=== PATIENT | female | born 1950 | race Caucasian/White ===

== ENCOUNTER 2024-12-30 14:36 | Inpatient (IN) | payer MEDICARE ==
[2024-12-30] MEDS ORDERED: Polyethylene Glycol 3350 Powder 17 GM Packet PO PRN (14:48)
[2024-12-30] MEDS ORDERED: Acetaminophen 325 MG Tab PO PRN (14:48)
[2024-12-30] MEDS ORDERED: Ondansetron 4 MG/2 ML SDV IV PRN (14:48)
[2024-12-30] MEDS ORDERED: Sodium Chloride 0.9% 10 ML Syringe FLUSH PRN (14:48)
[2024-12-30] MEDS: Albuterol 0.083% 2.5 MG/3 ML Neb Soln NEB PRN (15:10)
[2024-12-30] MEDS: Furosemide 40 MG/4 ML VIAL IVPUSH ONE (15:11)
[2024-12-30] MEDS: methylPREDNISolone Sodium Succinate 125 MG/2 ML SDV IVPUSH ONE (15:41)
[2024-12-30 15:48] LABS: BASE EXCESS ARTERIAL -9.9 mm/L; BICARBONATE,ARTERIAL 17.7 mmol/L (22.0-26.0); CARBOXYHEMOGLOBIN 1.5 % (0.0-1.6); METHEMOGLOBIN 0.4 %; O2 SATURATION ARTERIAL 88.9 % (95.0-98.0); OXYHEMOGLOBIN 87.2 %; PCO2 ARTERIAL 47.7 mmHg (35.0-42.0); PO2 ARTERIAL 67.4 mmHg (75.0-100.0); TOTAL HEMOGLOBIN 11.4 g/dL (12.0-16.0)
[2024-12-30] MEDS: Propofol 200 MG/20 ML SDV IVPUSH ONE (16:19)
[2024-12-30] MEDS: Succinylcholine 200 MG/10 ML MDV ONE (16:29)
[2024-12-30] MEDS: propofoL 1,000 MG/100 ML 100 ML ONE (16:30)
[2024-12-30] MEDS: propofoL 1,000 MG/100 ML 100 ML IV SCH (16:30)
[2024-12-30] MEDS: Propofol 200 MG/20 ML SDV ONE (16:30)
[2024-12-30] MEDS: Succinylcholine 200 MG/10 ML MDV IV STA (16:35)
[2024-12-30 16:47] LABS: C-REACTIVE PROTEIN 2.68 mg/dL (<0.50)
[2024-12-30 16:50] LABS: TROPONIN I HIGH SENSITIVITY 633.1 pg/mL (<=60.3)
[2024-12-30] MEDS: Heparin Sodium 5,000 UNITS in Sodium Chloride 0.9% 500 ML IV SCH (16:50)
[2024-12-30 17:39] LABS: HEMATOCRIT 31.8 % (34.3-46.0); HEMOGLOBIN 10.5 g/dL (11.2-15.5); MEAN CORPUSCULAR HEMOGLOBIN 29.7 pg (31.6-35.5); MEAN CORPUSCULAR VOLUME 89.8 fL (81.4-99.0); RED BLOOD CELL COUNT 3.54 M/uL (3.77-5.24); WHITE BLOOD CELL COUNT,WBC 23.9 K/uL (3.2-11.0)
[2024-12-30 17:42] LABS: BASE EXCESS ARTERIAL -6.4 mm/L; BICARBONATE,ARTERIAL 18.8 mmol/L (22.0-26.0); CARBOXYHEMOGLOBIN 2.5 % (0.0-1.6); METHEMOGLOBIN 1.2 %; O2 SATURATION ARTERIAL 89.7 % (95.0-98.0); OXYHEMOGLOBIN 86.4 %; PCO2 ARTERIAL 38.9 mmHg (35.0-42.0); TOTAL HEMOGLOBIN 10.7 g/dL (12.0-16.0)
[2024-12-30 18:00] LABS: A/G RATIO 0.7 (1.2-2.2); ALANINE AMINOTRANSFERASE,ALT 29 U/L (12-78); ALBUMIN 2.9 g/dL (3.4-5.0); ALKALINE PHOSPHATASE 121 U/L (46-116); ANION GAP 19.6 mmol/L (5.0-14.0); ASPARTATE AMNIOTRANSFERASE,AST 53 U/L (15-37); BILIRUBIN TOTAL 0.8 mg/dL (0.2-1.0); BLOOD UREA NITROGEN,BUN 18 mg/dL (7-18); CARBON DIOXIDE,CO2 21 mmol/L (21-32); CHLORIDE,CL 96 mmol/L (100-108); CREATININE 1.2 mg/dL (0.6-1.0); EST CRCL DRUG DOSING (CG) 38.78 mL/min; ESTIMATED GFR 47 mL/min (>60); GLUCOSE RANDOM 220 mg/dL (74-106); POTASSIUM,K 3.6 mmol/L (3.6-5.2); PROTEIN TOTAL,TP 7.2 g/dL (6.4-8.2); SODIUM,NA 133 mmol/L (140-148)
[2024-12-30] MEDS: Heparin Sodium/D5W 25,000 UNITS/500 ML BAG IV SCH (18:26)
[2024-12-30] MEDS: cefTRIAXone 1 GM in Sodium Chloride 0.9% 50 ML IV SCH (18:31)
[2024-12-30] MEDS: Doxycycline 100 MG in Sodium Chloride 0.9% 100 ML IV SCH (19:02)
[2024-12-30] MEDS: Enoxaparin 40 MG/0.4 ML Syringe SUBCUT SCH (19:13)
[2024-12-30] MEDS ORDERED: methylPREDNISolone Sodium Succinate 40 MG/1 ML SDV IVPUSH SCH (21:00)
[2024-12-30] MEDS ORDERED: Nystatin Topical Powder 15 GM Bottle TOP SCH (22:00)
[2024-12-31] MEDS ORDERED: predniSONE 20 MG Tab PO SCH (08:00)
== END 2024-12-30 20:44 | DRG 208 ==
LOC: JP.MS 14:36 → JP.ICU 15:21
PROVIDERS: ADMIT Hospitalist; ATTEND Hospitalist
PROC: 4A133R1 Monitoring of Arterial Saturation, Peripheral, Percutaneous Approach (ICD-10-PCS; principal; 2024-12-30)
PROC: 0BH17EZ Insertion of Endotracheal Airway into Trachea, Via Natural or Artificial Opening (ICD-10-PCS; 2024-12-30)
PROC: 5A1935Z Respiratory Ventilation, Less than 24 Consecutive Hours (ICD-10-PCS; 2024-12-30)
PROC: 5A09357 Assistance with Respiratory Ventilation, Less than 24 Consecutive Hours, Continuous Positive Airway Pressure (ICD-10-PCS; 2024-12-30)
DX: J18.9 Pneumonia, unspecified organism (principal); I21.4 Non-ST elevation (NSTEMI) myocardial infarction; J96.01 Acute respiratory failure with hypoxia; J96.02 Acute respiratory failure with hypercapnia; J44.0 Chronic obstructive pulmonary disease with (acute) lower respiratory infection; J44.1 Chronic obstructive pulmonary disease with (acute) exacerbation; E87.4 Mixed disorder of acid-base balance; I50.9 Heart failure, unspecified; I44.7 Left bundle-branch block, unspecified; I25.10 Atherosclerotic heart disease of native coronary artery without angina pectoris; E66.9 Obesity, unspecified; Z88.0 Allergy status to penicillin; Z88.8 Allergy status to other drugs, medicaments and biological substances; Z79.899 Other long term (current) drug therapy; Z95.1 Presence of aortocoronary bypass graft; Z68.36 Body mass index [BMI] 36.0-36.9, adult
CPT/HCPCS: 31500; 36415; 36600; 36620; 51702; 71045; 71045-26; 80053; 82803; 83605; 83735; 83880; 84484; 85027; 85379; 86140; 93005; 94002; 94640; 94660; 99223; A7290-GY; A9270-GY; J0330; J0696; J1644; J1940; J2704; J2919; J3490